=== PATIENT | female | born 1990 | race Caucasian/White ===

== ENCOUNTER 2020-08-10 11:28 | Outpatient (RCR) | payer OTHER, SELFPAY ==
[2020-08-10] MEDS: RHO(D) IMMUNE GLOBULIN 300 MCG/2 ML SYRINGE IM (16:01)
== END 2020-11-08 23:59 | disposition home or self-care (01) ==
LOC: ANHLAB 11:28
PROVIDERS: PCP Internal Medicine; Visit Provider Obstetrics & Gynecology
DX: Z29.13 Encounter for prophylactic Rho(D) immune globulin (principal); O36.0130 Maternal care for anti-D [Rh] antibodies, third trimester, not applicable or unspecified; Z3A.00 Weeks of gestation of pregnancy not specified
CPT/HCPCS: 36415; 85461; 90384; 96372; J2790

== ENCOUNTER 2020-09-16 10:19 | Emergency (ER) | payer OTHER, SELFPAY ==
--- NOTE | ~2020-09-16 | US_ITS ---
US OB >= 14 weeks Fetus DATE: 09/16/2020 12:21 INDICATION: Right lower quadrant abdominal pain TECHNIQUE: Real-time and color flow imaging COMPARISON: None FINDINGS: Live navas intrauterine gestation, fetus in breech presentation. heart rate of 155 bpm. Posterior placenta, lower margin 3.5 cm above the internal os. Subjectively normal amount of amniotic fluid. No retroplacental abnormal fluid collection is noted. Right ovary measures 3 x 2.3 x 1.8 cm. There is vascular flow to the right ovary. Left ovary is not v isualized. Scanning of the right lower quadrant reveals no significant finding. IMPRESSION: Live navas intrauterine gestation, fetus in breech presentation Posterior placenta Reviewed, dictated and finalized at [facility]. Reviewed, dictated and finalized at location A.
[2020-09-16 10:22] VITALS: BP 113/64; PULSE 92; RESP 20; TEMP 36.2; O2SAT 99
--- NOTE | 2020-09-16 10:56 | ED.ABDPAIN ---
HPI - Abdominal Pain General Chief Complaint: Abdominal Pain Stated Complaint: 15 WEEKS PREG, ABD PAIN Time Seen by Provider: 09/16/20 10:54 Source: patient Mode of arrival: ambulatory Limitations: no limitations History of Present Illness HPI narrative: This is a 30-year-old , about 15 weeks , that presents to the emergency department for right-sided abdominal pain present since this morning. Reports it is sharp in nature and constant. She took Tylenol this morning for her pain with some relief. Associated with nausea. Her OB is Dr. Hernandez. Denies fever, vomiting, dysuria, hematuria, or vaginal bleeding. Related Data Allergies Allergy/AdvReac Type Severity Reaction Status Date / Time Penicillins Allergy Unknown Unknown Verified 09/16/20 10:24 latex Allergy Blister Verified 09/16/20 10:25 sumatriptan [From Imitrex] Allergy Unknown Verified 09/16/20 10:25 Review of Systems Review of Systems: Narrative: CONSTITUTIONAL: Denies fever GASTROINTESTINAL: Reports abdominal pain, nausea. Denies vomiting GENITOURINARY: Denies dysuria or hematuria. All systems reviewed & are unremarkable except as noted in HPI and below PMFSH Past Medical History Medical History (Updated 09/16/20 @ 13:11 by Vira Camacho PA-C) No active medical problems Family History Family History (Updated 08/08/16 @ 23:56 by DOCTOR UNKNOWN) Mother Family history of multiple sclerosis Family history of kidney disease Hypertension Family history of diabetes mellitus in first degree relative Family history of malignant neoplasm of ovary Grandparent Carcinoma of colon, Onset Age: 50 Family history of malignant neoplasm of ovary Other Family history of malignant neoplasm of male breast Social History Social History (Updated 09/16/20 @ 11:11 by Vira Camacho PA-C) Second hand tobacco smoke exposure: Yes Smoking end date: 05/04/11 Alcohol intake: former Substance use: never Gender identity (if verbalized by the patient): Female Exam Narrative: Exam Narrative: GENERAL: Well-appearing, well-nourished, and in no acute distress. HEAD: Normocephalic, atraumatic. EYES: EOMI. CHEST: Clear to auscultation. No respiratory distress. No wheezes rales or rhonchi HEART: Regular rate and rhythm. No murmur heard. Normal peripheral pulses. ABDOMEN: Soft, nondistended, normal active bowel sounds. Mild tenderness to palpation in the right mid abdomen, without guarding. No CVA tenderness EXTREMITIES: Normal range of motion. No edema. SKIN: Warm, dry, no rash. NEURO: No focal deficits. Alert and oriented x3. PSYCH: Normal mood and affect Course Consultations Consultation #1: Spoke with Dr. Hernandez about patient and work-up who will follow up with patient in clinic. Date: 09/16/20 Time: 13:10 Vital Signs Vital signs: Vital Signs Temperature 97.2 F L 09/16/20 10:22 Pulse Rate 92 09/16/20 10:22 Respiratory Rate 20 09/16/20 10:22 Blood Pressure 113/64 09/16/20 10:22 Pulse Oximetry 99 09/16/20 10:22 Temperature 97.2 F L 09/16/20 10:22 Pulse Rate 92 09/16/20 10:22 Respiratory Rate 20 09/16/20 10:22 Blood Pressure 113/64 09/16/20 10:22 Pulse Oximetry 99 09/16/20 10:22 MDM - Abdominal Pain MDM Narrative Medical decision making narrative: Patient presents the emergency department for right-sided mid abdominal pain present since this morning. She is afebrile and nontoxic-appearing. Vitals are stable. CBC with mild leukocytosis to 12. Also shows normocytic anemia with hemoglobin of 10.7. Metabolic panel and lipase without concerning findings. UA is negative other than 1+ bacteria. Patient will be started on Macrobid for this. ultrasound shows live navas intrauterine gestation. Right ovary appears normal with normal vascular flow. The area in question of patient's pain was scanned without concerning findings. Patient updated on case findings. Reports improvement with IV Tylenol and
[2020-09-16 11:01] LABS: Basophils Percent Auto 0.2 % (0.2-1.2); Eosinophils Percent Auto 0.2 % (0-4.4); Hematocrit 31.3 % (37.0-47.0); Hemoglobin 10.7 g/dL (12.0-15.0); Immature Granulocyte Absolute 0.04 K/mm3 (0.00-0.031); Immature Granulocyte Percent A 0.3 % (0-0.5); Lymphocytes Percent Auto 17.5 % (18.3-44.2); Mean Corpuscular HGB Conc 34.2 g/dl (32-36); Mean Corpuscular Hemoglobin 30.8 pg (26-34); Mean Corpuscular Volume 90.2 fl (80-100); Mean Platelet Volume 10.4 fl (7.4-10.4); Monocytes Absolute Auto 0.4 K/mm3 (0.1-0.6); Monocytes Percent Auto 3.4 % (2.6-8.5); Neutrophils Absolute Auto 9.4 K/mm3 (1.3-6.7); Neutrophils Percent Auto 78.4 % (45.5-73.1); Platelet Count Result 265 k/mm3 (150-375); Red Blood Count 3.47 M/mm3 (4.2-5.4); Red Cell Distribution Width 12.5 % (11.5-14.5)
[2020-09-16 11:08] LABS: Add Urine Microscopic? YES; Appearance Urine Clear (Clear); Bacteria Urine 1+ /hpf; Bilirubin Urine Negative (Negative); Blood Urine Negative (Negative); Color Urine Yellow (Yellow); Glucose Urine UA Negative (Negative); Ketones Urine Trace mg/dL (Negative); Leukocyte Esterase Ur Negative LEU/UL (Negative); Mucus Urine Rare /lpf; Nitrate Urine Negative (Negative); Protein Urine Negative (Negative); RBC Urine 0-2 /hpf (0-2); Specific Grav Ur 1.015 (1.001-1.035); Squamous Epithelial Cell Urine Occasional /hpf (Few); Urobilinogen Urine Negative mg/dL (<2.0); WBC Urine 0-3 /hpf
[2020-09-16 11:11] LABS: Alanine Aminotransferase 12 U/L (4-35); Albumin Level 3.7 g/dL (3.5-5.1); Alkaline Phosphatase 58 U/L (38-126); Anion Gap 5 mmol/L (8-16); Aspartate Amino Transferase 18 U/L (14-36); Bilirubin,Total < 0.1 mg/dL (0.2-1.3); Blood Urea Nitrogen 9 mg/dL (7-17); Calcium 8.9 mg/dL (8.4-10.2); Carbon Dioxide 23 mmol/L (22-30); Chloride 105 mmol/L (98-107); Estimated CRCL calculation 118 ml/min; Estimated Glomerular Filt Rate > 60; Glucose 85 mg/dL (65-105); Lipase 32 U/L (23-300); Potassium 3.8 mmol/L (3.4-5.0); Sodium 133 mmol/L (137-145)
[2020-09-16] MEDS: ONDANSETRON INJ 4 MG/2 ML VIAL IV PUSH (11:28)
[2020-09-16] MEDS: SODIUM CHLORIDE 0.9% IV 1,000 ML 999 ML IV CONT (11:28)
== END 2020-09-16 13:24 | disposition home or self-care (01) ==
PROVIDERS: Emergency Provider Emergency Medicine; PCP Internal Medicine
DX: O26.892 Other specified pregnancy related conditions, second trimester (principal); R10.9 Unspecified abdominal pain; R82.71 Bacteriuria; O32.1XX0 Maternal care for breech presentation, not applicable or unspecified; Z3A.15 15 weeks gestation of pregnancy; Z77.22 Contact with and (suspected) exposure to environmental tobacco smoke (acute) (chronic); Z87.891 Personal history of nicotine dependence
CPT/HCPCS: 36415; 76805; 80053; 81001; 83690; 85025; 96374; 96375; 99284; J0131; J2405; J7030

== ENCOUNTER 2020-10-24 12:27 | Observation (INO) | payer OTHER, SELFPAY ==
--- NOTE | ~2020-10-24 | US_ITS ---
EXAMINATION: US OB limited DATE: 10/24/2020 15:52 INDICATION: Abdominal pain. Second trimester. TECHNIQUE: Real-time ultrasound of the pelvis was performed. COMPARISON: Ultrasound 09/16/2020 FINDINGS: There is a single fetus in vertex presentation. The placenta is fundal and posterior, 7.6 cm from th e cervix. heart rate is 155 beats per minute (bpm). The amniotic fluid volume is subjectively n ormal. The cervical length is 3.6 cm on transabdominal images. IMPRESSION: 1. Single living fetus in vertex presentation. 2. Normal cervical length on transabdominal images. Reviewed, dictated and finalized at location A.
[2020-10-24 13:00] VITALS: TEMP 36.6
[2020-10-24 13:05] VITALS: BP 106/49; PULSE 66
--- NOTE | 2020-10-24 13:13 | PC.NURSE ---
Marely CNM called,informed pt came in stating she has right sided abdominal pain that radiates to her right side. Pt states it is unbearable to walk, better when resting but not gone. Pt states she was in the ER last month for the same pain and they couldnt find anything. Orders received for UA and CBC. Informed dopplered fht's at 143 and VSS.
[2020-10-24 13:38] LABS: Basophils Percent Auto 0.3 % (0.2-1.2); Eosinophils Percent Auto 0.3 % (0-4.4); Hematocrit 29.5 % (37.0-47.0); Hemoglobin 9.8 g/dL (12.0-15.0); Immature Granulocyte Absolute 0.07 K/mm3 (0.00-0.031); Immature Granulocyte Percent A 0.6 % (0-0.5); Lymphocytes Absolute Auto 2.42 K/mm3 (0.9-3.2); Lymphocytes Percent Auto 20.3 % (18.3-44.2); Mean Corpuscular HGB Conc 33.2 g/dl (32-36); Mean Corpuscular Hemoglobin 30.4 pg (26-34); Mean Corpuscular Volume 91.6 fl (80-100); Monocytes Absolute Auto 0.5 K/mm3 (0.1-0.6); Monocytes Percent Auto 4.2 % (2.6-8.5); Neutrophils Absolute Auto 8.9 K/mm3 (1.3-6.7); Neutrophils Percent Auto 74.3 % (45.5-73.1); Platelet Count Result 244 k/mm3 (150-375); Red Blood Count 3.22 M/mm3 (4.2-5.4); Red Cell Distribution Width 12.4 % (11.5-14.5); White Blood Count 11.9 K/mm3 (4.5-10.0)
[2020-10-24 13:42] LABS: Add Urine Microscopic? YES; Appearance Urine Cloudy (Clear); Bacteria Urine Trace /hpf; Bilirubin Urine Negative (Negative); Blood Urine Negative (Negative); Color Urine Yellow (Yellow); Glucose Urine UA Negative (Negative); Ketones Urine Negative (Negative); Leukocyte Esterase Ur Negative LEU/UL (Negative); Mucus Urine Few /lpf; Nitrate Urine Negative (Negative); Protein Urine 1+ mg/dL (Negative); RBC Urine 0-2 /hpf (0-2); Specific Grav Ur 1.021 (1.001-1.035); Squamous Epithelial Cell Urine Few /hpf (Few); Urobilinogen Urine Negative mg/dL (<2.0); WBC Urine 0-3 /hpf
[2020-10-24] MEDS: CYCLOBENZAPRINE HCL 10 MG TABLET PO (14:17)
--- NOTE | 2020-10-24 15:36 | PC.NURSE ---
1525-S.Adelina CNM called, informed pt rates her pain a 10 when walking and 4-6 when in bed. Pt states flexeril did not help pain much at all. Order received for US for cervical length, well being,and placenta ck.
[2020-10-24 16:41] VITALS: BMI 30.7
--- NOTE | 2020-10-24 16:44 | OBADM ---
This patient, Oksana Nowak, admitted to the OB room OB Post 112 for observation. Patient/family oriented to hospital policies and general routines including ID bracelet, bed and alarms, visiting hours, pain management, procedures, bathroom and other care routines, personal items, smoking policy, room service/diet, and visiting hours. Patient/Family are encouraged to report perceived risks to care and to ask questions if they do not understand what they are told or what they should do.
--- NOTE | 2020-10-24 17:04 | PC.NURSE ---
1630-Pt states she wants to go home and sleep in her own bed. Marely HICKS will send script for norco to pt's pharmacy. Pt called and made an appt with her primary care dr andi jhaveri her pain in further detail.
--- NOTE | 2020-10-26 07:22 | PM.OBTRLD ---
OB - Triage/Final Diagnosis Visit Information Date of evaluation: 10/24/20 Reason for evaluation: other (abd pain) Comments/Additional reasons for admission: I have assessed the risk for this patient, Oksana Nowak, and determined that she would benefit from observation care. Evaluation Laboratory results: Laboratory Tests 10/24/20 10/24/20 13:27 13:27 WBC 11.9 H RBC 3.22 L Hgb 9.8 L Hct 29.5 L MCV 91.6 MCH 30.4 MCHC 33.2 RDW 12.4 Plt Count 244 MPV 10.0 Immature Gran % (Auto) 0.6 H Neut % (Auto) 74.3 H Lymph % (Auto) 20.3 [place] % (Auto) 4.2 Eos % (Auto) 0.3 Baso % (Auto) 0.3 Lymph # (Auto) 2.42 [place] # (Auto) 0.5 Eos # (Auto) 0.0 Baso # (Auto) 0.0 Abs Immat Gran (auto) 0.07 H Absolute Neuts (auto) 8.9 H Absolute Nucleated RBC 0.0 Nucleated RBC % 0.0 Urine Color Yellow Urine Appearance Cloudy H Urine pH 7.0 Ur Specific [place] 1.021 Urine Protein 1+ H Urine Glucose (UA) Negative Urine Ketones Negative Ur Blood (Man) Negative Urine Nitrate Negative Urine Bilirubin Negative Urine Urobilinogen Negative Leukocyte Esterase Rfl Negative Urine RBC 0-2 Urine WBC 0-3 Ur Squamous Epith Cells Few Urine Bacteria Trace Urine Mucus Few H
== END 2020-10-24 16:45 | disposition home or self-care (01) ==
PROVIDERS: Advanced Practice Midwife; Admitting Provider Obstetrics & Gynecology; PCP Internal Medicine; Visit Provider Obstetrics & Gynecology
DX: O26.892 Other specified pregnancy related conditions, second trimester (principal); R10.9 Unspecified abdominal pain; Z3A.20 20 weeks gestation of pregnancy
CPT/HCPCS: 36415; 76815; 81001; 85025; A9270; G0378; G0379

== ENCOUNTER 2020-11-26 13:57 | Observation (INO) | payer OTHER, SELFPAY ==
--- NOTE | ~2020-11-26 | US_ITS ---
EXAMINATION: US OB limited DATE: 11/26/2020 17:03 INDICATION: Abdominal pain during late second trimester of TECHNIQUE: Real-time ultrasound of the pelvis was performed. The interpreting radiologist was not pre sent for the study. COMPARISON: None. FINDINGS: There is a single living fetus in vertex presentation. The placenta is posterior and not low-lying w ith caudal margin 7.3 cm from the internal cervical os. heart rate is 139 beats per minute (bpm ). The amniotic fluid index is 12.3 cm, which is normal (5th%-95%: 9.7-22.1 cm at 25 weeks estimated gestational age). IMPRESSION: 1. Single living fetus in vertex presentation with heart rate of 139 bpm. 2. Normal amniotic fluid index of 12.3 cm. 3. Normal posterior placenta. No evident subchorionic hematoma. Reviewed, dictated and finalized at location A. IMPRESSION: 1. Single living fetus in vertex presentation with heart rate of 139 bpm . 2. Normal amniotic fluid index of 12.3 cm. 3. Normal posterior placenta. No evident subchorionic hematoma.
[2020-11-26 15:01] VITALS: BP 104/52; PULSE 83
[2020-11-26 15:02] VITALS: BP 103/50; PULSE 75
--- NOTE | 2020-11-26 15:44 | OBADM ---
This patient, Oksana Nowak, admitted to the OB room OB Post 115 for observation. Patient/family oriented to hospital policies and general routines including ID bracelet, bed and alarms, visiting hours, pain management, procedures, bathroom and other care routines, personal items, smoking policy, room service/diet, and visiting hours. Patient/Family are encouraged to report perceived risks to care and to ask questions if they do not understand what they are told or what they should do.
[2020-11-26 15:52] LABS: Add Urine Microscopic? YES; Amorphous Sediment Urine Few; Appearance Urine Clear (Clear); Bacteria Urine Trace /hpf; Bilirubin Urine Negative (Negative); Blood Urine Negative (Negative); Color Urine Yellow (Yellow); Glucose Urine UA Negative (Negative); Ketones Urine Trace mg/dL (Negative); Leukocyte Esterase Ur Negative LEU/UL (Negative); Mucus Urine Rare /lpf; Nitrate Urine Negative (Negative); Protein Urine Negative (Negative); RBC Urine 0-2 /hpf (0-2); Specific Grav Ur 1.014 (1.001-1.035); Squamous Epithelial Cell Urine Rare /hpf (Few); Urobilinogen Urine Negative mg/dL (<2.0); WBC Urine 0-3 /hpf
[2020-11-26 15:57] VITALS: TEMP 36.4
--- NOTE | 2020-11-26 17:04 | PC.NURSE ---
1613--reported strip and pt complaints to Zelalem Rojo. US ordered.
--- NOTE | 2020-11-26 17:08 | PC.NURSE ---
1645--to US per wheelchair.
--- NOTE | 2020-11-26 18:03 | PC.NURSE ---
1740--reported pt status to Zelalem Rojo. Medication orders given.
--- NOTE | 2020-11-26 18:04 | PC.NURSE ---
1755--Pt refused meds-will go home and use medication given per provider.
--- NOTE | 2020-12-20 08:22 | P.PNOB_ITS ---
OB - Triage/Final Diagnosis Visit Information Comments/Additional reasons for admission: I have assessed the risk for this patient, Oksana Nowak, and determined that she would benefit from observation care. Evaluation Laboratory results: Laboratory Tests 11/26/20 15:15 Urine Color Yellow Urine Appearance Clear Urine pH 7.0 Ur Specific [place] 1.014 Urine Protein Negative Urine Glucose (UA) Negative Urine Ketones Trace Ur Blood (Man) Negative Urine Nitrate Negative Urine Bilirubin Negative Urine Urobilinogen Negative Leukocyte Esterase Rfl Negative Urine RBC 0-2 Urine WBC 0-3 Ur Squamous Epith Cells Rare Amorphous Sediment Few H Urine Bacteria Trace Urine Mucus Rare Final Diagnosis (1) Back pain: Code(s): M54.9 - Dorsalgia, unspecified Status: Acute
== END 2020-11-26 18:00 | disposition home or self-care (01) ==
PROVIDERS: Admitting Provider Obstetrics & Gynecology; PCP Internal Medicine; Visit Provider Obstetrics & Gynecology
DX: O99.891 Other specified diseases and conditions complicating pregnancy (principal); M54.9 Dorsalgia, unspecified; Z3A.00 Weeks of gestation of pregnancy not specified
CPT/HCPCS: 76815; 81001; G0378; G0379

== ENCOUNTER 2020-12-24 08:05 | Outpatient (RCR) | payer OTHER, SELFPAY ==
[2020-12-24 09:49] LABS: Hematocrit 30.9 % (37.0-47.0); Hemoglobin 10.3 g/dL (12.0-15.0)
[2020-12-24 09:57] LABS: Glucose 1 Hour PP 50gm Dose 147 mg/dL
[2020-12-24 10:38] LABS: HIV 1/2 Ab P24 Ag Result Negative (Negative)
[2020-12-26] MEDS: RHO(D) IMMUNE GLOBULIN 300 MCG/2 ML SYRINGE IM (14:18)
[2020-12-27 09:20] LABS: Rapid Plasma Reagin Non-Reactive (NonReactive)
== END 2021-03-24 23:59 | disposition home or self-care (01) ==
LOC: ANHLAB 08:05
PROVIDERS: PCP Internal Medicine; Visit Provider Obstetrics & Gynecology
DX: Z11.4 Encounter for screening for human immunodeficiency virus [HIV] (principal); Z29.13 Encounter for prophylactic Rho(D) immune globulin; O36.0130 Maternal care for anti-D [Rh] antibodies, third trimester, not applicable or unspecified; Z3A.00 Weeks of gestation of pregnancy not specified
CPT/HCPCS: 36415; 82947; 85014; 85018; 85461; 86592; 86703; 90384; 96372; G0432; J2790

== ENCOUNTER 2021-01-17 15:09 | Emergency (ER) | payer OTHER, SELFPAY ==
[2021-01-17] VITALS (8 sets, daily range): BP systolic 99–118; BP diastolic 63–76; PULSE 68–111; RESP 12–24; TEMP 36.3–36.4; O2SAT 97–100
--- NOTE | ~2021-01-17 | CT_ITS ---
EXAMINATION: CTA chest PE protocol DATE: 01/17/2021 21:50 INDICATION: TECHNIQUE: Computed tomography angiography (CTA) of the chest was performed with 100 mL Omnipaque-350 intravenous contrast timed to evaluate the pulmonary arteries. Coronal maximum intensity projection 3D-reconstructions were created by the technologist. Automated exposure control and iterative reconst ruction technique were employed. Exam dose: 364.91 mGy-cm total exam DLP. COMPARISON: None. FINDINGS: There is diagnostic contrast enhancement of the pulmonary arteries and no evidence of pulmo nary embolism. Normal heart size. Trace pericardial fluid. No thoracic aortic aneurysm or dissection. No hilar or mediastinal mass lesion or lymphadenopathy. The lungs are clear of infiltrate or consolidation. Included skeletal structures are unremarkable. IMPRESSION: No evidence of pulmonary embolism Reviewed, dictated and finalized at [facility]. Reviewed, dictated and finalized at location A.
--- NOTE | ~2021-01-17 | XR_ITS ---
EXAMINATION: XR chest 1V INDICATION: Shortness of breath and midsternal chest pain, COVID positive and 32 weeks TECHNIQUE: PA view of the chest is obtained. COMPARISON: None available FINDINGS: There are minimal opacities of the lung bases. No pleural effusion or pneumothorax is ident ified. The cardiomediastinal silhouette is normal. IMPRESSION: 1. Bibasilar airspace opacities, consistent with atelectasis versus pneumonia. Reviewed, dictated and finalized at location A.
--- NOTE | 2021-01-17 15:31 | ECG_ITS ---
Measurements Intervals [place] Rate: 115 P: 58 SC: 140 QRS: 63 QRSD: 76 T: -8 QT: 315 QTc: 436 Interpretive Statements SINUS TACHYCARDIA BORDERLINE ST-T WAVE ABNORMALITY- INFERIOR LEADS BASELINE ARTIFACT- I, III, AVL ABNORMAL ECG Electronically Signed On 01-17-2021 16:13:31 CDT by Willard Rasheed D.O.
[2021-01-17 16:18] LABS: Basophils Percent Auto 0.2 % (0.2-1.2); Eosinophils Percent Auto 0.3 % (0-4.4); Hematocrit 31.1 % (37.0-47.0); Hemoglobin 10.6 g/dL (12.0-15.0); Immature Granulocyte Absolute 0.07 K/mm3 (0.00-0.031); Immature Granulocyte Percent A 0.5 % (0-0.5); Lymphocytes Absolute Auto 2.02 K/mm3 (0.9-3.2); Lymphocytes Percent Auto 15.2 % (18.3-44.2); Mean Corpuscular HGB Conc 34.1 g/dl (32-36); Mean Corpuscular Hemoglobin 31.1 pg (26-34); Mean Corpuscular Volume 91.2 fl (80-100); Mean Platelet Volume 10.6 fl (7.4-10.4); Monocytes Absolute Auto 0.6 K/mm3 (0.1-0.6); Monocytes Percent Auto 4.8 % (2.6-8.5); Neutrophils Absolute Auto 10.5 K/mm3 (1.3-6.7); Platelet Count Result 275 k/mm3 (150-375); Red Blood Count 3.41 M/mm3 (4.2-5.4); White Blood Count 13.3 K/mm3 (4.5-10.0)
[2021-01-17 16:31] LABS: Anion Gap 7 mmol/L (8-16); Blood Urea Nitrogen 5 mg/dL (7-17); Calcium 8.7 mg/dL (8.4-10.2); Carbon Dioxide 22 mmol/L (22-30); Chloride 106 mmol/L (98-107); Estimated CRCL calculation 124 ml/min; Estimated Glomerular Filt Rate > 60; Glucose 99 mg/dL (65-110); Potassium 3.4 mmol/L (3.4-5.0); Sodium 135 mmol/L (137-145)
[2021-01-17 16:32] LABS: INR 0.9; Prothrombin Time 12.1 Seconds (11.1-14.7)
[2021-01-17 16:43] LABS: Troponin I < 0.012 ng/mL (0.000-0.034)
[2021-01-17 19:22] LABS: Troponin I < 0.012 ng/mL (0.000-0.034)
--- NOTE | 2021-01-17 19:48 | ED.URI ---
HPI - URI/Sore Throat General Chief Complaint: Upper Respiratory Infection Stated Complaint: sob Time Seen by Provider: 01/17/21 18:52 Source: patient Mode of arrival: ambulatory Limitations: no limitations History of Present Illness HPI Narrative: 30-year-old female Third , 32 weeks Complains of feeling short of breath since this morning with the symptoms being severe enough that she had plan to clean her house but could not do it Either activity or lying down seems to worsen her symptoms She does not have a cough or a fever She does not have any chest pain She does not have any swelling in her legs has been uneventful, no issues with hyperglycemia hypertension etc. Related Data Home Medications Medication Instructions Recorded Confirmed PNV,calcium [id number] acid tablet 01/17/21 [ Vitamin Plus Low Iron] Allergies Allergy/AdvReac Type Severity Reaction Status Date / Time Penicillins Allergy Unknown Unknown Verified 01/17/21 19:15 latex Allergy Blister Verified 01/17/21 19:15 sumatriptan [From Imitrex] Allergy Unknown Verified 01/17/21 19:15 Review of Systems Review of Systems: All systems reviewed & are unremarkable except as noted in HPI and below Constitutional: Constitutional: Reports no additional constitutional complaints, Denies chills, Denies fever(s) and Denies headache(s) Eyes: Eyes: Reports no additional eye complaints and Denies change in vision ENT: Denies headache(s) and Denies sore throat Cardiovascular: Cardiovascular: Denies chest pain and Denies dyspnea Respiratory: Respiratory: Denies cough, Reports dyspnea and Denies wheezing Gastrointestinal: Gastrointestinal: Denies abdominal pain, Denies diarrhea and Denies vomiting Genitourinary: Genitourinary: Denies urinary frequency and Denies dysuria Musculoskeletal: Musculoskeletal: Denies myalgias, Denies deformity and Denies numbness Integumentary/Breasts: Skin/Breast: Denies wounds Neurologic: Denies headache(s) Allergic/Immunologic: Allergic/Immunologic: Denies wheezing PMFSH Past Medical History Medical History (Updated 01/17/21 @ 23:40 by Ta Talley MD) No active medical problems Family History Family History (Updated 08/08/16 @ 23:56 by DOCTOR UNKNOWN) Mother Family history of multiple sclerosis Family history of kidney disease Hypertension Family history of diabetes mellitus in first degree relative Family history of malignant neoplasm of ovary Grandparent Carcinoma of colon, Onset Age: 50 Family history of malignant neoplasm of ovary Other Family history of malignant neoplasm of male breast Social History Social History (Updated 09/16/20 @ 11:11 by Vira Camacho PA-C) Second hand tobacco smoke exposure: Yes Smoking end date: 05/04/11 Alcohol intake: former Substance use: never Gender identity (if verbalized by the patient): Female Exam Const: General: cooperative, healthy appearing, no acute distress and alert Orientation/consciousness: patient oriented x3 (alert) HENMT: Head: normal to inspection, normocephalic and atraumatic Ears: external ears normal General nose exam: no epistaxis Eyes: Conjunctivae: conjunctivae normal EOM: EOMs intact bilaterally Neck: Neck: normal visual inspection, supple and no JVD Resp: Effort & Inspection: normal respiratory effort and not labored Auscultation: clear to auscultation bilaterally, no rales, no rhonchi, no wheezes and other (BS =) Cardio: Rate: regular rate Rhythm: regular rhythm Heart sounds: no murmurs GI: GI Palp: Yes Soft to palpation and No Tenderness to palpation present (GI) Other: Gravid uterus consistent with dates Skin: General skin exam: normal color and no rashes or lesions noted Neuro: General: patient oriented x3 (alert) and moves all extremities Speech: normal speech Extrem: General: normal to inspection and no pedal edema Psych: Affect: normal affec
[2021-01-17 19:54] LABS: D Dimer 1.66 ug/mL (<0.48)
[2021-01-17 20:09] LABS: NT Pro B Type Natriuretic Pept 43 pg/mL (5-100)
== END 2021-01-17 23:56 | disposition home or self-care (01) ==
PROVIDERS: Emergency Medicine; Emergency Provider Emergency Medicine; PCP Internal Medicine
DX: O26.893 Other specified pregnancy related conditions, third trimester (principal); R06.00 Dyspnea, unspecified; O99.891 Other specified diseases and conditions complicating pregnancy; R00.0 Tachycardia, unspecified; R91.8 Other nonspecific abnormal finding of lung field; R94.31 Abnormal electrocardiogram [ECG] [EKG]; Z3A.32 32 weeks gestation of pregnancy; Z77.22 Contact with and (suspected) exposure to environmental tobacco smoke (acute) (chronic); Z87.891 Personal history of nicotine dependence
CPT/HCPCS: 36415; 71045; 71275; 80048; 83880; 84484; 85025; 85380; 85610; 85730; 93005; 99284; Q9967

== ENCOUNTER 2021-01-31 12:40 | Outpatient (CLI) | payer OTHER, SELFPAY ==
[2021-01-31 13:00] VITALS: TEMP 36.7
[2021-01-31 13:07] VITALS: BP 102/52; PULSE 99
[2021-01-31 13:16] VITALS: BP 100/62; BP 102/52; PULSE 103
[2021-01-31 13:19] LABS: Basophils Percent Auto 0.2 % (0.2-1.2); Eosinophils Percent Auto 0.3 % (0-4.4); Hematocrit 28.4 % (37.0-47.0); Hemoglobin 9.6 g/dL (12.0-15.0); Immature Granulocyte Absolute 0.06 K/mm3 (0.00-0.031); Immature Granulocyte Percent A 0.5 % (0-0.5); Lymphocytes Absolute Auto 2.17 K/mm3 (0.9-3.2); Mean Corpuscular HGB Conc 33.8 g/dl (32-36); Mean Corpuscular Hemoglobin 30.7 pg (26-34); Mean Corpuscular Volume 90.7 fl (80-100); Mean Platelet Volume 10.5 fl (7.4-10.4); Monocytes Absolute Auto 0.6 K/mm3 (0.1-0.6); Monocytes Percent Auto 4.6 % (2.6-8.5); Neutrophils Absolute Auto 9.2 K/mm3 (1.3-6.7); Neutrophils Percent Auto 76.4 % (45.5-73.1); Platelet Count Result 310 k/mm3 (150-375); Red Blood Count 3.13 M/mm3 (4.2-5.4); Red Cell Distribution Width 12.9 % (11.5-14.5); White Blood Count 12.1 K/mm3 (4.5-10.0)
[2021-01-31 13:26] LABS: Add Urine Microscopic? YES; Appearance Urine Cloudy (Clear); Bacteria Urine 1+ /hpf; Bilirubin Urine Negative (Negative); Blood Urine Negative (Negative); Calcium Oxalate Crystals Urine Present /hpf; Color Urine Yellow (Yellow); Glucose Urine UA 1+ mg/dL (Negative); Ketones Urine Trace mg/dL (Negative); Leukocyte Esterase Ur Trace LEU/UL (NEGATIVE); Mucus Urine Rare /lpf; Nitrate Urine Negative (Negative); Protein Urine 2+ mg/dL (Negative); Specific Grav Ur 1.028 (1.001-1.035); Squamous Epithelial Cell Urine Few /hpf (Few)
[2021-01-31 13:28] LABS: Alanine Aminotransferase 11 U/L (4-35); Albumin Level 3.3 g/dL (3.5-5.1); Alkaline Phosphatase 132 U/L (38-126); Anion Gap 8 mmol/L (8-16); Aspartate Amino Transferase 19 U/L (14-36); Bilirubin,Total 0.3 mg/dL (0.2-1.3); Blood Urea Nitrogen 4 mg/dL (7-17); Calcium 8.1 mg/dL (8.4-10.2); Carbon Dioxide 19 mmol/L (22-30); Chloride 107 mmol/L (98-107); Estimated Glomerular Filt Rate > 60; Glucose 125 mg/dL (65-110); Potassium 3.4 mmol/L (3.4-5.0); Sodium 134 mmol/L (137-145); Uric Acid 4.1 mg/dL (2.5-7.5)
[2021-01-31 13:31] VITALS: BP 108/61; PULSE 93
[2021-01-31 13:46] VITALS: BP 101/61; PULSE 97
[2021-01-31 13:49] LABS: Creatinine Urine 218.8 mg/dL
[2021-01-31 13:52] LABS: Total Protein Urine Random < 5 mg/dL; Ur Ttl Prot Creatinine Ratio 0.02 mg/mg (0-0.20)
[2021-01-31 13:58] VITALS: BP 101/61; PULSE 88
--- NOTE | 2021-01-31 14:08 | PC.NURSE ---
1355- called to report labs and bp's. Orders received to discharge pt home.
== END 2021-01-31 13:55 | disposition home or self-care (01) ==
LOC: ANHOBOP 12:45 → ANHOBPP 12:46
PROVIDERS: PCP Internal Medicine; Visit Provider Obstetrics & Gynecology
DX: O13.9 Gestational [pregnancy-induced] hypertension without significant proteinuria, unspecified trimester (principal); Z3A.00 Weeks of gestation of pregnancy not specified
CPT/HCPCS: 36415; 59025; 80053; 81001; 82570; 84156; 84550; 85025; 87086; 99199

== ENCOUNTER 2021-02-11 22:03 | Observation (INO) | payer OTHER, SELFPAY ==
[2021-02-11 22:16] VITALS: BP 119/74; PULSE 109
[2021-02-11 22:55] VITALS: BMI 33.2
--- NOTE | 2021-02-11 22:57 | OBADM ---
This patient, Oksana Nowak, admitted to the OB room OB Post 117 for observation. Patient/family oriented to hospital policies and general routines including ID bracelet, bed and alarms, visiting hours, pain management, procedures, bathroom and other care routines, personal items, smoking policy, room service/diet, and visiting hours. Patient/Family are encouraged to report perceived risks to care and to ask questions if they do not understand what they are told or what they should do.
--- NOTE | 2021-03-04 08:20 | PM.OBTRLD ---
OB - Triage/Final Diagnosis Visit Information Comments/Additional reasons for admission: I have assessed the risk for this patient, Oksana Nowak, and determined that she would benefit from observation care. Final Diagnosis (1) False labor: Code(s): O47.9 - False labor, unspecified Status: Acute
== END 2021-02-11 23:48 | disposition home or self-care (01) ==
PROVIDERS: Admitting Provider Obstetrics & Gynecology; PCP Internal Medicine; Visit Provider Obstetrics & Gynecology
DX: O47.03 False labor before 37 completed weeks of gestation, third trimester (principal); Z3A.36 36 weeks gestation of pregnancy
CPT/HCPCS: G0378; G0379

== ENCOUNTER 2021-02-19 13:32 | Observation (INO) | payer OTHER, SELFPAY ==
[2021-02-19 14:00] VITALS: BP 107/64; PULSE 114
[2021-02-19 14:15] VITALS: BP 102/68; PULSE 122
[2021-02-19 14:20] VITALS: PULSE 116; O2SAT 98
[2021-02-19 15:13] VITALS: TEMP 36.6
[2021-02-19 15:28] VITALS: BMI 34.8
--- NOTE | 2021-02-19 15:35 | PC.NURSE ---
1450-S.Adelina CNVaibhav called, informed pt came in stating she was [place] every minute on the way here. SVE is closed and contractions are very irregular. Orders received to discharge pt home if repeat SVE is still closed.
--- NOTE | 2021-02-27 07:36 | P.PNOB_ITS ---
OB - Triage/Final Diagnosis Visit Information Date of evaluation: 02/19/21 Reason for evaluation: threatened labor Comments/Additional reasons for admission: I have assessed the risk for this patient, Oksana Nowak, and determined that she would benefit from obs ervation care.
== END 2021-02-19 15:00 | disposition home or self-care (01) ==
PROVIDERS: Admitting Provider Obstetrics & Gynecology; PCP Internal Medicine; Visit Provider Obstetrics & Gynecology
DX: O47.1 False labor at or after 37 completed weeks of gestation (principal); Z3A.37 37 weeks gestation of pregnancy
CPT/HCPCS: G0378; G0379

== ENCOUNTER 2021-02-28 14:34 | Inpatient (IN) | payer OTHER, SELFPAY ==
[2021-02-28] VITALS (22 sets, daily range): BP systolic 114–136; BP diastolic 58–89; PULSE 88–124; TEMP 36.8–37; O2SAT 97–100; BMI 34.8
[2021-02-28 15:52] LABS: Basophils Percent Auto 0.1 % (0.2-1.2); Eosinophils Percent Auto 0.2 % (0-4.4); Hematocrit 31.6 % (37.0-47.0); Hemoglobin 10.5 g/dL (12.0-15.0); Immature Granulocyte Absolute 0.15 K/mm3 (0.00-0.031); Lymphocytes Absolute Auto 2.63 K/mm3 (0.9-3.2); Lymphocytes Percent Auto 18.3 % (18.3-44.2); Mean Corpuscular HGB Conc 33.2 g/dl (32-36); Mean Corpuscular Hemoglobin 29.5 pg (26-34); Mean Corpuscular Volume 88.8 fl (80-100); Mean Platelet Volume 10.9 fl (7.4-10.4); Monocytes Absolute Auto 0.8 K/mm3 (0.1-0.6); Monocytes Percent Auto 5.3 % (2.6-8.5); Neutrophils Absolute Auto 10.8 K/mm3 (1.3-6.7); Neutrophils Percent Auto 75.1 % (45.5-73.1); Platelet Count Result 335 k/mm3 (150-375); Red Blood Count 3.56 M/mm3 (4.2-5.4); Red Cell Distribution Width 13.6 % (11.5-14.5); White Blood Count 14.3 K/mm3 (4.5-10.0)
[2021-02-28] MEDS: CLINDAMYCIN 900 MG/D5W 50 ML 900 MG/50 ML PIGGYBACK 50 MG IVPB (17:30)
[2021-02-28] MEDS: LACTATED RINGERS 1,000 ML 125 ML IV CONT ×2 (17:30→20:23)
--- NOTE | 2021-02-28 17:34 | LDADM ---
This patient, Oksana Nowak, was admitted to Labor/Delivery/Recovery 102 on 02/28/21 at 14:34. Plans for labor, pain management and were discussed with patient. Patient/family oriented to hospital policies and general routines including ID bracelet, bed and alarms, visiting hours, pain management, procedures, bathroom and other care routines, personal items, smoking policy, room service/diet and guest tray routines, infant security routines, and visiting hours. Patient/Family are encouraged to report perceived risks to care and to ask questions if they do not understand what they are told or what they should do. See OBIX for further documentation.
[2021-02-28] MEDS: ONDANSETRON INJ 4 MG/2 ML VIAL IV PUSH (18:12)
[2021-02-28] MEDS: fentaNYL CITRATE INJ (*CRX) 100 MCG/2 ML VIAL 50 MCG IV PUSH ×2 (18:20→19:22)
[2021-02-28] MEDS: fentaNYL CITRATE INJ (*CRX) 100 MCG/2 ML VIAL IV PUSH ×3 (20:22→22:27)
--- NOTE | 2021-02-28 22:08 | WPDANESEPP ---
Anes - Eval Pre Procedure Procedure: labor epidural Date/Time: 02/28/21 22:08 Surgeon: rima Preop Diagnosis: pain during labor Pre Op Diagnosis: labor,leaking Patient Data Age: 31 Gender: F Height: 1.63 m Weight: 92 kg Last Vital Signs Temp 36.8 C 02/28/21 19:00 Pulse 97 02/28/21 15:30 BP 122/82 02/28/21 15:30 Allergies Allergy/AdvReac Type Severity Reaction Status Date / Time Penicillins Allergy Unknown Unknown Verified 02/28/21 21:11 latex Allergy Blister Verified 02/28/21 21:11 sumatriptan [From Imitrex] Allergy Unknown Verified 02/28/21 21:11 Home Medications Medication Instructions Recorded Confirmed Type Vitamin Plus Low Iron 1 tablet PO EVERY OTHER DAY 01/17/21 02/28/21 History Laboratory Tests 02/28/21 02/28/21 02/28/21 15:43 15:43 15:43 WBC 14.3 K/mm3 H K/mm3 (4.5-10.0) RBC 3.56 M/mm3 L M/mm3 (4.2-5.4) Hgb 10.5 g/dL L g/dL (12.0-15.0) Hct 31.6 % L % (37.0-47.0) MCV 88.8 fl fl (80-100) MCH 29.5 pg pg (26-34) MCHC 33.2 g/dl g/dl (32-36) RDW 13.6 % % (11.5-14.5) Plt Count 335 k/mm3 k/mm3 (150-375) MPV 10.9 fl H fl (7.4-10.4) Immature Gran % (Auto) 1.0 % H % (0-0.5) Neut % (Auto) 75.1 % H % (45.5-73.1) Lymph % (Auto) 18.3 % % (18.3-44.2) [place] % (Auto) 5.3 % % (2.6-8.5) Eos % (Auto) 0.2 % % (0-4.4) Baso % (Auto) 0.1 % L % (0.2-1.2) Lymph # (Auto) 2.63 K/mm3 K/mm3 (0.9-3.2) [place] # (Auto) 0.8 K/mm3 H K/mm3 (0.1-0.6) Eos # (Auto) 0.0 K/mm3 K/mm3 (0-0.3) Baso # (Auto) 0.0 K/mm3 K/mm3 (0.0-0.1) Abs Immat Gran (auto) 0.15 K/mm3 H K/mm3 (0.00-0.031) Absolute Neuts (auto) 10.8 K/mm3 H K/mm3 (1.3-6.7) Absolute Nucleated RBC 0.0 K/mm3 K/mm3 (0.0-0.012) Nucleated RBC % 0.0 % % (0.0-0.2) RPR Pending Blood Type O Negative Antibody Screen Positive Antibody Identification Pending Antigen Identification Pending LEEANNE, IgG Interpret Pending LEEANNE, Poly Interpret Negative LEEANNE, Complement Interp Pending Patient hx anesthesia problems: none Family hx anesthesia problems: none Results Review: All pre-operative results and documents have been reviewed as part of the pre-operative evaluation. [facility] Past Medical History Medical History (Updated 02/28/21 @ 22:09 by Priti Nathan CRNA) No active medical problems Family History Family History (Updated 08/08/16 @ 23:56 by DOCTOR UNKNOWN) Mother Family history of multiple sclerosis Family history of kidney disease Hypertension Family history of diabetes mellitus in first degree relative Family history of malignant neoplasm of ovary Grandparent Carcinoma of colon, Onset Age: 50 Family history of malignant neoplasm of ovary Other Family history of malignant neoplasm of male breast Social History Social History (Updated 09/16/20 @ 11:11 by ZOE HerreraC) Smoking status: Never smoker Second hand tobacco smoke exposure: Yes Smoking end date: 05/04/11 Alcohol intake: former Substance use: never Gender identity (if verbalized by the patient): Female Spiritual care concerns: No Exam Day of Procedure 02/28/21 22:08
[2021-03-01] VITALS (164 sets, daily range): BP systolic 72–131; BP diastolic 31–76; PULSE 70–162; RESP 16–18; TEMP 36.6–36.9; O2SAT 89–100
[2021-03-01] MEDS: ONDANSETRON INJ 4 MG/2 ML VIAL IV PUSH ×2 (00:27→06:18)
[2021-03-01] MEDS: CLINDAMYCIN 900 MG/D5W 50 ML 900 MG/50 ML PIGGYBACK 50 MG IVPB (01:51)
[2021-03-01] MEDS: OXYTOCIN 30 UNITS/NS 500 ML 30 UNITS/500 ML BAG IV CONT (02:07)
[2021-03-01] MEDS: LACTATED RINGERS 1,000 ML 125 ML IV CONT (02:19)
--- NOTE | 2021-03-01 07:28 | WPDOBADMIT ---
Obstetrics - Admit Note Admission Note: record reviewed. No pertinent additions to the history and/or any subsequent changes in the physical findings that are not consistent with the expected course of the were found. TOLAC, SROM SVE per RN clear fluid 5.5cm, anticipate vaginal delivery Additions to the history and/or subsequent changes in the physical findings follow. None.
--- NOTE | 2021-03-01 09:24 | PM.OBPRVD ---
OB - Delivery Note Procedure Delivery date: 03/01/21 Procedure: vaginal delivery events: No Care and Prolonged Rupture of Membrane Intrapartal events: None Induction method: none Delivery augmentation: pitocin Delivery monitor: external FHT, external uterine and internal FHT Route of delivery: Laceration Description: Periurethral (bilateral) and Perineal - 1st Degree Delivery repair: vicryl Specimen: Yes Quantitative Blood Loss (ml): 410 Anesthesia type: Epidural Disposition: floor Baby Date of : 03/01/21 Time of : 09:04 Weeks of gestation at delivery: 38 Infant gender: Male Weight (pounds): 7 Weight (ounces): 13 presentation: vertex position: Left Occiput Anterior Placenta delivery description: Spontaneous cord vessel description: 3 Vessels, Clamped/Cut and Delayed Cord Clamping score one minute: 8 score five minutes: 9 Narrative: mother and baby in stable condition
[2021-03-01] MEDS: OXYTOCIN 30 UNITS/NS 500 ML 30 UNITS/500 ML BAG 125 UNITS IV CONT (09:38)
[2021-03-01] MEDS: BENZOCAINE 20% AER SPR (*SP) 56 GM CAN 1 SPRAY TOPICAL (11:44)
[2021-03-01] MEDS: WITCH HAZEL 40 PADS 1 PAD TOPICAL (11:45)
--- NOTE | 2021-03-01 12:15 | OBPPTRN ---
Patient transferred to post room # 279 via wheelchair. Oriented to unit, room, information board, rooming in, admission packet and security measures. Patient verbalizes understanding.
[2021-03-01] MEDS: IBUPROFEN 600 MG TABLET PO ×2 (12:41→19:00)
[2021-03-02] MEDS: IBUPROFEN 600 MG TABLET PO ×2 (00:40→07:47)
[2021-03-02 04:08] LABS: Hematocrit 26.5 % (37.0-47.0); Hemoglobin 8.7 g/dL (12.0-15.0)
[2021-03-02] MEDS: CALCIUM CARBONATE (TUMS) 500 MG (200 MG ELEMENTAL) (04:10)
[2021-03-02] MEDS: DOCUSATE SODIUM 100 MG CAPSULE PO (07:47)
[2021-03-02] MEDS: POLYSACCHARIDE IRON COMPLEX 150 MG CAPSULE PO (07:47)
[2021-03-02] MEDS: MULTIVIT/MIN/PREN/FOL AC/IRON TABLET 1 TAB PO (07:47)
[2021-03-02] MEDS: WITCH HAZEL 40 PADS 1 PAD TOPICAL (07:49)
[2021-03-02 08:00] VITALS: BP 104/62; PULSE 82; RESP 18; TEMP 36.4
--- NOTE | 2021-03-02 09:23 | PM.OBPNVD ---
OB - PN: Subj Subjective Date/time seen: 03/02/21 09:23 Patient comments: no complaints baby status: doing well OB - PN: Obj Data Labs CBC & Chem 7: 03/02/21 04:03 Labs: Laboratory Results - last 24 hr 03/02/21 04:03 Hgb 8.7 L Hct 26.5 L OB - PN A/P Plan day: 1 Plan: routine care and discharge home Time Spent With Patient Time: Total time spent is greater than 50% in coordination of care (as documented) at patient's floor/unit and/or counseling patient: Review of Systems Review of Systems: All systems reviewed & are unremarkable except as noted in HPI and below Exam Const: General: cooperative, healthy appearing and comfortable Nutritional Appearance: average body habitus Orientation/consciousness: patient oriented x3 Limitations: no limitations
--- NOTE | 2021-03-02 09:25 | P.DS_ITS ---
DS: Admitting Diagnosis Discharge Date 03/02/21 Admitting Diagnosis [facility] OB - DS: Summary OB Procedures : None OB Procedures Intrapartum: OB Procedures: : None Time Spent with Patient Time attestation: Total time spent providing and/or coordinating discharge services: DS: Data Data Completed and Pending Pending studies at discharge: Pending at discharge 03/01/21 09:09 Surgical [PTH] Routine Labs on day of discharge: Labs from last 24 hours 03/02/21 04:03 Hgb 8.7 L Hct 26.5 L Discharge Plan Discharge Attending physician on discharge: Elisha Hernandez Discharging Clinician: Roseanne Sahu Patient Disposition: Home, Self-Care Activity: pelvic rest Diet: regular Patient Instructions: Antibiotic Form Stand Alone Forms: General Discharge Information Follow-up/Referrals: Roseanne Sahu, LIZM [[employer]] - 4 Weeks Discharge Medications: New polysaccharide iron complex 150 mg iron Capsule 150 mg PO BIDWM Qty: 60 RF: 0 Continued Vitamin Plus Low Iron 27 mg iron- 1 mg tablet 1 tablet PO EVERY OTHER DAY RF: 0 Date of admission: 02/28/21 14:34 Primary Care Provider: Trina,Andrés Thorne Admitting Provider: Elisha Hernandez Attending physician on admission: Elisha Hernandez Condition: Stable
--- NOTE | 2021-03-02 13:05 | WPDANLDPN2 ---
Anes-Prog Note L&D Date/Time: 03/02/21 13:05 Comfortable throughout: labor and delivery Neuraxial method: epidural Epidural/Spinal procedure site: clean & non-tender Neuro status: Neuro function grossly intact. Cardiovascular status: normal Respiratory status: normal Airway patency: baseline Mental status: baseline Post-Op hydration status: normal Vital Signs: Last Vital Signs Temp 36.7 C 03/01/21 19:02 Pulse 85 03/01/21 19:02 Resp 16 03/01/21 19:02 BP 106/59 L 03/01/21 19:02 Pulse Ox 100 03/01/21 08:24 Pain score (VAS): 05/13 Post-procedural complaints: none Patient feedback: Patient satisfied with anesthetic care.
[2021-03-02 15:38] LABS: Rapid Plasma Reagin Non-Reactive (NonReactive)
[2021-03-04 07:56] VITALS: BP 123/71; PULSE 95; RESP 20; TEMP 37.3; O2SAT 98
== END 2021-03-02 14:14 | disposition home or self-care (01) | DRG 807 ==
LOC: ANHLDR 14:39 → ANHOB2 03-01 12:42
PROVIDERS: Advanced Practice Midwife; Admitting Provider Obstetrics & Gynecology; PCP Internal Medicine; Visit Provider Obstetrics & Gynecology
DX: O34.211 Maternal care for low transverse scar from previous cesarean delivery (principal); Z37.0 Single live birth; Z3A.38 38 weeks gestation of pregnancy; O99.824 Streptococcus B carrier state complicating childbirth; O36.8330 Maternal care for abnormalities of the fetal heart rate or rhythm, third trimester, not applicable or unspecified; O70.0 First degree perineal laceration during delivery; O71.82 Other specified trauma to perineum and vulva; O99.284 Endocrine, nutritional and metabolic diseases complicating childbirth; E28.2 Polycystic ovarian syndrome
CPT/HCPCS: 36415; 84112; 85014; 85018; 85025; 86592; 86850; 86880; 86900; 86901; 86902; 88307; A9270; J0131; J2405; J2590; J2795; J3010; J7120